=== PATIENT | female | born 1940 | race Caucasian/White ===

== ENCOUNTER 2017-06-17 07:02 | Day surgery (SDC) | payer MEDICARE, BC ==
[2017-06-16 15:47] VITALS: BMI 23.3
--- NOTE | 2017-06-17 00:18 | HP ---
INDICATION FOR BRONCHOSCOPY: Vocal cord paralysis with hoarseness and inspiratory wheeze. The patient is a 77-year-old essentially a nonsmoker who has had a cough, kind of throat, secretion r elated issues, now for an extended period of time for at least 3 years or so. She has multiple medic al problems. In fact, regarding the hoarseness secretion issues and cough, she sees several [facility] doctors including ENT physician at [facility], ENT physician in [facility]. Extensive workup was done. She has had a previous CAT scan and chest x-ray, which were normal. Her right vocal cord is paralyzed, etiology unclear. She has received multiple treatments including inhaled steroids, p.o. steroids, several nasal sprays without much relief. She is now taking Synthroid 0.1 a day, calcium, vitamin D, fish oil, B12, aspir in, Cozaar 100, Norvasc 5, Lipitor 20, Xanax p.r.n.n , and Nexium 20 twice a day. Somehow down the line someone thought it was related to reflux motility problems. Workup by GI has not revealed a ny obvious source of her cough, not due to significant reflux in spite of being on medication seen as a problem. In the morning when she wakes up, she had a large amount of secretions, which she has to clear up. No prior history of TB, pneumonia, or bronchial asthma. She then had some kind of surgical procedures done in [facility] where they apparently ablated her nasal nose to prevent any drainage. Some kind of surgery that I have not heard of before. However, they did decrease the drainage, but it has not affected the cough. PAST MEDICAL HISTORY: Now is pertinent for myopathy and neuropathy diagnosed in [place]. She is barrett ing no specific medication. History of trigeminal neuralgia, history of hypertension, allergic rhini tis, history of mild anxiety, history of mitral valve prolapse, history of previous polymyalgia rheum atica, history of previous apical ballooning syndrome. PREVIOUS SURGERIES: Thyroid surgery, appendix, cataracts, previous catheterization and surgery for h er sinuses. ALLERGIES: No specific medications. REVIEW OF SYSTEMS: Otherwise 10 point negative. PHYSICAL EXAMINATION: VITAL SIGNS: Sats are 96, pulse 80, blood pressure 130/80. CHEST: Inspiratory wheezing. CARDIAC: Normal S1, S2, no gallops. ABDOMEN: Soft, no masses. PFT shows slight flattening of the inspiratory loop suggestive of an extrathoracic obstruction, but o therwise vital capacity flows are essentially normal with only mild reduction in FEV1 at 79%. IMPRESSION: 1. Vocal cord paralysis with an inspiratory wheezing, stridor. 2. Retained secretions, chronic sinus drainage. 3. Unknown myopathy, neuropathy. Diagnostic bronchoscopy will be performed. Further recommendations after above.
[2017-06-17] MEDS ORDERED: Midazolam HCl 2 mg/2 ml Vial ONE ×2 (08:14→08:24)
[2017-06-17] MEDS ORDERED: Fentanyl 100 MCG/2 ML VIAL ONE ×2 (08:14→08:24)
[2017-06-17] MEDS ORDERED: Lidocaine 1% (PF) 30 ML VIAL ONE (08:49)
--- NOTE | 2017-06-17 09:45 | OP ---
DATE OF PROCEDURE: 06/17/2017 SURGEON: Dr. Tommy Champion PROCEDURE: Bronchoscopy, diagnostic. INDICATIONS: Chronic cough, hoarseness, inspiratory wheezing, rule out endobronchial or endotracheal lesion. POSTBRONCHOSCOPY DIAGNOSES: 1. No endobronchial or endotracheal lesion seen. 2. The right vocal cord appeared to be somewhat smaller atrophic, associated small nodular friable l esion posteriorly in the right vocal cord. Please note no biopsies were done. Imaging pictures were taken. The patient was given a copy to be taken to the patient's ENT physician for further ongoing evaluation and treatment. The patient has known right vocal cord paralysis which is consistent with the vocal cord paralysis. PROCEDURE IN DETAIL: After informed consent, the patient did not receive DuoNeb with lidocaine. Thi s was initiated. She started coughing, said the mist was bothering her, this was discontinued during the procedure. The right and left nostril was prepared with Lidocaine. She was given Cetacaine spr ay. The video bronchoscope was passed via the left nostril. Pharynx, hypopharynx and vocal cords we re visualized, the posterior pharynx was normal. The right vocal cord was atrophic, there was a smal l friable bloody lesion sitting posteriorly in the right vocal cord. The left vocal cord was normal. On entering the trachea, completely normal. Slight posterior tracheomalacia. Leonela was normal. Right lung was inspected initially, upper, middle, and lower lobe, no endobronchial lesion, blood or pus seen. Left lung was also visualized the left upper and left lower lobe, no endobronchial obstruc tion or blood was seen. Both lungs were lavaged with normal saline. The washings will be sent for Gram stain and C&S. Please note, the patient tolerated the procedure well. BRIEF DISCHARGE NOTE: The patient tolerated the procedure well. Results will be made available to t he patient's primary care physician including the ENT physician for ongoing evaluation of the right p osterior vocal cord lesion.
== END 2017-06-17 10:40 | disposition home or self-care (01) ==
LOC: SDC 07:02
PROVIDERS: ATTEND Internal Medicine Pulmonary Disease
PROC: 0BJ08ZZ Inspection of Tracheobronchial Tree, Via Natural or Artificial Opening Endoscopic (ICD-10-PCS; principal; 2017-06-17)
DX: J38.01 Paralysis of vocal cords and larynx, unilateral (principal); J38.3 Other diseases of vocal cords; G72.9 Myopathy, unspecified; G62.9 Polyneuropathy, unspecified; I10 Essential (primary) hypertension; F41.9 Anxiety disorder, unspecified; I34.1 Nonrheumatic mitral (valve) prolapse; J30.9 Allergic rhinitis, unspecified; M35.3 Polymyalgia rheumatica; Z79.899 Other long term (current) drug therapy; Z88.5 Allergy status to narcotic agent; Z88.8 Allergy status to other drugs, medicaments and biological substances; Z88.6 Allergy status to analgesic agent; Z91.040 Latex allergy status; Z98.41 Cataract extraction status, right eye; Z98.42 Cataract extraction status, left eye; Z90.49 Acquired absence of other specified parts of digestive tract; Z98.890 Other specified postprocedural states
CPT/HCPCS: 87070; 87205; 99152; 99153; J2001; J2250; J3010

== ENCOUNTER 2018-04-29 13:08 | Outpatient (CLI) | payer MEDICARE, BC ==
--- NOTE | 2018-04-29 15:45 | BD ---
DEXA BONE MINERAL DENSITY STUDY: HISTORY: Osteoporosis. COMPARISON: NONE. FINDINGS: LUMBAR SPINE BMD (g/cm2) T-SCORE Z-SCORE L1 0.736 -2.3 0.0 L2 0.827 -1.8 0.8 L3 0.880 -1.9 0.9 L4 0.865 -1.8 1.0 TOTAL 0.832 -2.0 0.7 WHO CLASSIFICATION: Osteopenia. BMD (g/cm2) T-SCORE Z-SCORE FEMORAL NECK: 0.529 -2.9 -0.6 TOTAL: 0.692 -2.1 0.0 WHO CLASSIFICATION: Osteoporosis. A FRAX score is not reported, as some T-scores are at or below -2.5. IMPRESSION: 1. Osteoporosis left femoral neck. 2. Osteopenia lumbar spine. POS: [facility]
== END 2018-04-29 13:09 | disposition home or self-care (01) ==
LOC: BICMAMMO 13:08
PROVIDERS: ATTEND Obstetrics & Gynecology
DX: Z12.31 Encounter for screening mammogram for malignant neoplasm of breast (principal); M81.0 Age-related osteoporosis without current pathological fracture; M85.88 Other specified disorders of bone density and structure, other site; Z85.850 Personal history of malignant neoplasm of thyroid
CPT/HCPCS: 77063; 77067; 77080